=== PATIENT | male | born 1975 | race Caucasian/White ===

== ENCOUNTER 2020-03-14 21:40 | Emergency (ER) | payer MEDICAID, OTHER ==
[~2020-03-14] VITALS: Ht 170.2 cm; Wt 64.0 kg
[2020-03-14 21:47] VITALS: BP 124/71
[2020-03-15 01:04] VITALS: BP 110/89
== END 2020-03-15 01:06 | disposition home or self-care (01) ==
LOC: MED 21:40
DX: F10.129 Alcohol abuse with intoxication, unspecified (principal); J45.909 Unspecified asthma, uncomplicated
CPT/HCPCS: 99283

== ENCOUNTER 2020-06-24 08:45 | Emergency (ER) | payer MEDICAID ==
[~2020-06-24] VITALS: Ht 170.2 cm; Wt 68.0 kg
[2020-06-24 08:45] VITALS: BP 126/94
[2020-06-24] MEDS ORDERED: NACL 0.9% 1,000 ML IV ONE (09:00)
[2020-06-24 09:24] LABS: BASOPHILS % (AUTO) 0.7 % (0.0-2.0); EOSINOPHILS # (AUTO) 0.6 K/uL (0-0.4); EOSINOPHILS % (AUTO) 12.9 % (0.0-4.0); HEMATOCRIT 40.1 % (36-52); HEMOGLOBIN 12.8 g/dL (12.0-18.0); LYMPHOCYTES # (AUTO) 1.5 K/uL (2.0-11.5); LYMPHOCYTES % (AUTO) 32.3 % (20.5-51.1); MEAN CORPUSCULAR HEMOGLOBIN 27 pg (27-31); MEAN CORPUSCULAR HGB CONC 32 g/dL (33-37); MEAN CORPUSCULAR VOLUME 83.4 fL (80-94); MONOCYTES # (AUTO) 0.3 K/uL (0.8-1.0); MONOCYTES % (AUTO) 5.9 % (1.7-9.3); NEUTROPHILS # (AUTO) 2.3 K/uL (1.8-7.7); NEUTROPHILS % (AUTO) 48.2 % (42.2-75.2); PLATELET COUNT (AUTO) 271 K/uL (140-450); RED BLOOD CELL COUNT(AUTO) 4.81 MIL/uL (4.20-6.10); RED CELL DISTRIBUTION WIDTH 18.1 % (11.6-13.7); WHITE BLOOD COUNT (AUTO) 4.7 K/uL (4.8-10.8)
[2020-06-24 09:35] LABS: CARBON DIOXIDE 26.7 mmol/L (21-32); POTASSIUM 3.7 mmol/L (3.5-5.1)
[2020-06-24 09:48] LABS: ALBUMIN 3.3 g/dL (3.4-5.0); TOTAL BILIRUBIN 0.3 mg/dL (0.0-1.0)
[2020-06-24] MEDS ORDERED: ALBUTEROL HFA MDI 90 MCG/ACTUATION 8 GM INH ONE (10:55)
== END 2020-06-24 11:18 | disposition home or self-care (01) ==
LOC: EDUNIT# 08:45 → MED 08:45
DX: F10.129 Alcohol abuse with intoxication, unspecified (principal); J45.909 Unspecified asthma, uncomplicated; R46.4 Slowness and poor responsiveness
CPT/HCPCS: 36415; 80053; 85025; 99283; G0482; J3535

== ENCOUNTER 2020-06-24 13:11 | Emergency (ER) | payer MEDICAID ==
[~2020-06-24] VITALS: Ht 175.3 cm; Wt 63.5 kg
[2020-06-24 13:11] VITALS: BP 117/62
--- NOTE | 2020-06-24 13:17 | NUR ---
44 y/o male mattie als returns to ED for ETOH intoxication and ALOC. Pt was found outside of [facility] with boxed wine next to him. Pt arousable to painful stimulation. Presents with snoring respirations. Placed on 3L NC. Positioned for comfort, placed on bedside monitor. medhx: unobtainable
[2020-06-24] MEDS ORDERED: NACL 0.9% 1,000 ML IV ONE ×2 (13:25→14:50)
--- NOTE | 2020-06-24 13:56 | NUR ---
Pt is sleeping, VSS, will continue to monitor.
[2020-06-24] MEDS ORDERED: NACL 0.9% 1,000 ML IV SCH (15:05)
--- NOTE | 2020-06-24 15:22 | NUR ---
Pt transported to CT in [facility].
--- NOTE | 2020-06-24 15:31 | NUR ---
Pt brought back from CT and placed in bed 6.
--- NOTE | 2020-06-24 15:52 | NUR ---
Pt sleeping VSS, will continue monitor
--- NOTE | 2020-06-24 17:19 | NUR ---
Patient is sleeping, VSS, will continue to monitor.
--- NOTE | 2020-06-24 18:56 | NUR ---
Pt is sleeping, VSS, will continue to monitor.
--- NOTE | 2020-06-24 19:08 | NUR ---
Bedside report given to PANCHITO Ferrer. Transfered care at this time.
--- NOTE | 2020-06-24 19:09 | NUR ---
RECEIVED REPORT FROM PANCHITO BARTHOLOMEW FOR CONTINUITY OF CARE.
--- NOTE | 2020-06-24 19:20 | NUR ---
GAVE PT DINNER. PT ATE 100%.
[2020-06-24] MEDS ORDERED: THIAMINE 200 MG/2 ML VIAL IM STA (19:22)
[2020-06-24] MEDS ORDERED: MULTIVITAMIN 1 TAB PO STA (19:22)
--- NOTE | 2020-06-24 20:45 | NUR ---
Patient discharged with v/s stable. Written and verbal after care instructions given and explained. Patient verbalized understanding. Ambulatory with steady gait. All questions addressed prior to discharge. Advised to follow up with PMD.
[2020-06-24 20:50] VITALS: BP 146/76
--- NOTE | 2020-06-29 05:36 | NUR ---
LATE ENTRY--- NS BOLUS NON-ADMINSTERED PER MD ORDER
== END 2020-06-24 20:45 | disposition home or self-care (01) ==
LOC: MED 13:11
DX: F10.129 Alcohol abuse with intoxication, unspecified (principal); R46.4 Slowness and poor responsiveness; J45.909 Unspecified asthma, uncomplicated
CPT/HCPCS: 70450; 96360; 96372; 99285; J3411; J7030; 96361; 99284

== ENCOUNTER 2020-09-02 16:43 | Emergency (ER) | payer MEDICAID ==
[~2020-09-02] VITALS: Ht 170.2 cm; Wt 68.0 kg
[2020-09-02 16:46] VITALS: BP 106/71
--- NOTE | 2020-09-02 16:46 | NUR ---
PT PLACED IN COVID TENT TO WAIT FOR MSE.
--- NOTE | 2020-09-02 17:00 | NUR ---
DOLORES FROM THE [facility]RE[facility] REQUESTING AN ASTHMA MEDICATION REFILL AND "PAPERS FOR HOUSING". HX ASTHMA
[2020-09-02] MEDS ORDERED: predniSONE 20 MG TAB PO ONE (18:15)
[2020-09-02] MEDS ORDERED: ALBUTEROL SULFATE/IPRATROPIU 3 ML SOL IH ONE (18:15)
[2020-09-02 18:48] VITALS: BP 106/71
== END 2020-09-02 18:48 | disposition home or self-care (01) ==
LOC: MED 16:43
DX: J45.901 Unspecified asthma with (acute) exacerbation (principal)
CPT/HCPCS: 94640; 99283; J7512

== ENCOUNTER 2020-09-03 00:52 | Emergency (ER) | payer MEDICAID ==
[~2020-09-03] VITALS: Ht 170.2 cm; Wt 64.0 kg
[2020-09-03 00:55] VITALS: BP 141/86
--- NOTE | 2020-09-03 00:55 | NUR ---
PT PLACED IN TENT
--- NOTE | 2020-09-03 01:42 | NUR ---
ERMD IN TENT TO EVALUATE PT.
[2020-09-03] MEDS ORDERED: ALBUTEROL SULFATE/IPRATROPIU 3 ML SOL IH ONE (01:45)
[2020-09-03] MEDS ORDERED: methylPREDNISolone SS 125 MG/2 ML VIAL IM ONE (01:45)
--- NOTE | 2020-09-03 01:50 | NUR ---
MEDICATED PER ERMDS ORDER.TOLERATED WELL.
--- NOTE | 2020-09-03 02:49 | NUR ---
RT AT THE TENT GIVING BREATHING TREATMENT, TOLERATING WELL
--- NOTE | 2020-09-03 03:00 | NUR ---
SWAB DONE SENT TO LAB
[2020-09-03 03:50] VITALS: BP 129/82
== END 2020-09-03 03:50 | disposition home or self-care (01) ==
LOC: MED 00:52
DX: U07.1 COVID-19 (principal); F10.129 Alcohol abuse with intoxication, unspecified; Y90.9 Presence of alcohol in blood, level not specified
CPT/HCPCS: 87426; 94640; 96372; 99291; J2930

== ENCOUNTER 2022-05-10 22:24 | Emergency (ER) | payer MEDICAID ==
[~2022-05-10] VITALS: Ht 172.7 cm; Wt 61.2 kg
[2022-05-10 22:25] VITALS: BP 154/85
--- NOTE | 2022-05-10 22:28 | NUR ---
pt offloaded to [facility]
--- NOTE | 2022-05-11 00:14 | NUR ---
Dr. Gallagher examining patient.
[2022-05-11] MEDS ORDERED: ALBUTEROL SULFATE/IPRATROPIU 3 ML SOL IH ONE ×2 (00:15→00:30)
[2022-05-11] MEDS ORDERED: methylPREDNISolone SS 125 MG in WATER STERILE 2 ML IM ONE (00:15)
[2022-05-11] MEDS ORDERED: methylPREDNISolone SS 125 MG/2 ML VIAL ONE (00:18)
[2022-05-11] MEDS ORDERED: WATER STERILE 10 ML MC ONE (00:18)
--- NOTE | 2022-05-11 00:19 | NUR ---
Respiratory Therapist at bedside for respiratory intervention.
--- NOTE | 2022-05-11 00:22 | NUR ---
PT MEDICATED PER ERMD ORDERS.
--- NOTE | 2022-05-11 00:53 | NUR ---
PT TAKEN TO XRAY
--- NOTE | 2022-05-11 00:57 | NUR ---
PT RETURN FROM RADIOLOGY
[2022-05-11] MEDS ORDERED: PRED20TA5 PO (01:00)
[2022-05-11] MEDS ORDERED: ALBU0.0912 IH (01:00)
[2022-05-11] MEDS ORDERED: AZIT250T4 PO (01:05)
--- NOTE | 2022-05-11 01:16 | NUR ---
Patient discharged with v/s stable. Written and verbal after care instructions given and explained. Patient alert, oriented and verbalized understanding of instructions. Ambulatory with steady gait. All questions addressed prior to discharge. ID band removed. Patient advised to follow up with PMD. Rx of AZITHROMYCIN, ALBUTEROL, PREDNISONE given. Patient educated on indication of medication including possible reaction and side effects. Opportunity to ask questions provided and answered.
== END 2022-05-11 01:16 | disposition home or self-care (01) ==
LOC: MED 22:24
DX: J45.901 Unspecified asthma with (acute) exacerbation (principal); F15.90 Other stimulant use, unspecified, uncomplicated; Z71.6 Tobacco abuse counseling
CPT/HCPCS: 71045; 94640; 96372; 99283; J2930